=== PATIENT | female | born 1995 | race Caucasian/White ===

== ENCOUNTER 2018-06-11 21:03 | Emergency (ER) | payer BC, OTHER ==
--- NOTE | 2018-06-11 22:27 | ER ---
Nurse's Notes [facility] Name: Ketty Cohen Age: 22 yrs Sex: Female : 1995 Arrival Date: 06/11/2018 Time: 21:09 Bed 30 Private MD: Diagnosis: Contusion of unspecified part of head;Concussion without loss of consciousness Presentation: 06/11 21:10 Presenting complaint: Patient states: "A glass jar fell on my head at work and ever aj1 since I have been completely out of it" States that this occurred approximately 2 hours ago. Denies vomiting, LOC. Reports fatigue, dizziness, trouble focusing, and blurred vision. Transition of care: patient was not received from another setting of care. Mechanism of Injury: resulted from a direct blow, glass jar that fell on her head. Onset of symptoms was June 11, 2018 at 19:15. Risk Assessment: Do you want to hurt yourself or someone else? Patient reports no desire to harm self or others. Initial Sepsis Screen: Does the patient meet any 2 criteria? No. Patient's initial sepsis screen is negative. Does the patient have a suspected source of infection? No. Patient's initial sepsis screen is negative. Care prior to arrival: None. 21:10 Method Of Arrival: Ambulatory aj1 21:10 Acuity: EVELIO 4 aj1 Triage Assessment: 21:14 General: Appears in no apparent distress. comfortable, Behavior is calm, cooperative, aj1 appropriate for age. Pain: Complains of pain in forehead Pain does not radiate. Pain currently is 3 out of 10 on a pain scale. Quality of pain is described as sharp, Pain began 2 hours ago. Is intermittent. Neuro: Level of Consciousness is awake, alert, obeys commands, Oriented to person, place, time, situation, Moves all extremities. Full function Gait is steady, Speech is normal, Facial symmetry appears normal, Reports blurred vision dizziness, headache. Cardiovascular: Patient's skin is warm and dry. Respiratory: Airway is patent Respiratory effort is even, unlabored, Respiratory pattern is regular, symmetrical. 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 - Social history:: Smoking status: Patient/guardian denies using tobacco. - Ebola Screening: : Patient denies travel to an Ebola-affected area in the 21 days before illness onset. Screenin:57 Abuse screen: Denies threats or abuse. Nutritional screening: No deficits noted. mb3 Tuberculosis screening: No symptoms or risk factors identified. Fall Risk None identified. Assessment: 23:55 General: Appears in no apparent distress. comfortable, Behavior is calm, cooperative, mb3 appropriate for age. Pain: Complains of pain in right parietal area. 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 Full function Reports headache. Cardiovascular: No deficits noted. Respiratory: No deficits noted. GI: No deficits noted. No signs and/or symptoms were reported involving the gastrointestinal system. : No deficits noted. No signs and/or symptoms were reported regarding the genitourinary system. Vital Signs: 21:14 BP 116 / 86; Pulse 84; Resp 18; Temp 98.7; Pulse Ox 95% on R/A; Weight 58.06 kg (R); aj1 Height 5 ft. 4 in. (162.56 cm) (R); Pain 3/10; 23:21 BP 118 / 86; Pulse 81; Resp 16; Pulse Ox 97% on R/A; rv 23:57 BP 109 / 80; Pulse 69; Resp 16; Pulse Ox 99% on R/A; mb3 21:14 Body Mass Index 21.97 (58.06 kg, 162.56 cm) aj1 Arabella Coma Score: 21:10 Eye Response: spontaneous(4). Verbal Response: oriented(5). Motor Response: obeys aj1 commands(6). Total: 15. 22:19 Eye Response: spontaneous(4). Verbal Response: oriented(5). Motor Response: obeys cp commands(6). Total: 15. ED Course: 21:09 Patient arrived in ED. es 21:13 Triage completed. aj1 21:14 Arm band placed on Patient placed in waiting room, Patient notified of wait time. aj1 22:02 Page, Mickey, PA is PHCP. cp 22:02 Falcon, Vick, MD is Attending Physician. cp 22:38 Kvng Crawley, RN is Primary Nurse. mb3 23:57 No provider procedures requiring assistance completed. Patient did not have IV access mb3 during this emergency room visit. 23:59 Patient has correct armband on for positive identification. mb3 Administered Medications: No medications were administered Outcome: 22:26 Discharge ordered by MD. cp 23:58 Discharged to home ambulatory. mb3 23:58 Condition: stable 23:58 Discharge instructions given to patient, Instructed on discharge instructions, follow up and referral plans. Demonstrated understanding of instructions, follow-up care. 06/12 00:00 Patient left the ED. mb3 Signatures: Rosamaria Dsouza RN RN aj1 Marbella Edmond Corey, PA PA cp Kvng Cralwey, RN RN mb3 Devan Ponce RN RN rv Corrections: (The following items were deleted from the chart) 06/11 21:16 21:14 Pain: Complains of pain in forehead Pain does not radiate. Pain currently is 4 aj1 out of 10 on a pain scale. Quality of pain is described as sharp, Pain began 2 hours ago. Is intermittent, aj1
--- NOTE | 2018-06-11 22:27 | EDPHYS ---
Physician Documentation [facility] Name: Ketty Cohen Age: 22 yrs Sex: Female : 1995 Arrival Date: 06/11/2018 Time: 21:09 Bed 30 Private MD: ED Physician Vick Falcon HPI: 06/11 22:19 This 22 yrs old Male presents to ER via Ambulatory with complaints of Head cp Injury-Adult. 22:19 The patient or guardian reports injury, tenderness. The complaints affect the top of cp head. Context of injury: The problem was sustained at work, resulted from a direct blow, large bottle of honey mustard. Onset: The symptoms/episode began/occurred today, at 19:30. Associated signs and symptoms: Loss of consciousness: This patient did not experience any loss of consciousness. Pertinent positives: headache, Pertinent negatives: neck pain, vomiting. 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 - Social history:: Smoking status: Patient/guardian denies using tobacco. - Ebola Screening: : Patient denies travel to an Ebola-affected area in the 21 days before illness onset. ROS: 22:21 Constitutional: Negative for body aches, chills, fever, poor PO intake. cp 22:21 Eyes: Positive for blurry vision, Negative for photophobia, redness, vision loss. 22:21 ENT: Negative for drainage from ear(s), ear pain, sore throat, difficulty swallowing, difficulty handling secretions. 22:21 Cardiovascular: Negative for chest pain, palpitations. 22:21 Respiratory: Negative for cough, shortness of breath, wheezing. 22:21 Abdomen/GI: Negative for abdominal pain, nausea, vomiting. 22:21 Back: Negative for pain at rest, pain with movement, radiated pain. 22:21 : Negative for urinary symptoms. 22:21 Skin: Negative for cellulitis, rash. 22:21 Neuro: Positive for dizziness, headache, Negative for altered mental status, weakness. 22:21 All other systems are negative. Exam: 22:23 Head/Face: Normocephalic, atraumatic. cp 22:23 Constitutional: The patient appears in no acute distress, alert, awake, non-diaphoretic, non-toxic, well developed, well nourished. 22:23 Eyes: Periorbital structures: appear normal, Pupils: equal, round, and reactive to light and accomodation, Extraocular movements: intact throughout, Conjunctiva: normal, no exudate, no injection, Sclera: no appreciated abnormality, Lids and lashes: appear normal, bilaterally. 22:23 ENT: External ear(s): are unremarkable, Ear canal(s): are normal, clear, TM's: bulging, is not appreciated, bilaterally, dullness, bilaterally, erythema, is not appreciated, bilaterally, Nose: is normal, Mouth: is normal, Posterior pharynx: is normal, airway is patent, no erythema, no exudate. 22:23 Neck: C-spine: vertebral tenderness, is not appreciated, crepitus, is not appreciated, ROM/movement: is normal, is supple, without pain, no range of motions limitations, no nuchal rigidity. 22:23 Chest/axilla: Inspection: normal, Palpation: is normal, no crepitus, no tenderness. 22:23 Cardiovascular: Rate: normal, Rhythm: regular. 22:23 Respiratory: the patient does not display signs of respiratory distress, Respirations: normal, no use of accessory muscles, no retractions, no splinting, no tachypnea, labored breathing, is not present, Breath sounds: are clear throughout, no decreased breath sounds, no stridor, no wheezing. 22:23 Abdomen/GI: Exam negative for discomfort, distension, guarding, Inspection: abdomen appears normal. 22:23 Back: pain, is absent, ROM is normal. 22:23 Skin: cellulitis, is not appreciated, no rash present. 22:23 Neuro: Orientation: to person, place \T\ time. Mentation: lucid, able to follow commands, Cerebellar function: Romberg testing is negative, Motor: moves all fours, strength is normal, Sensation: is normal, Gait: is steady, at a normal pace, without difficulty. Vital Signs: 21:14 BP 116 / 86; Pulse 84; Resp 18; Temp 98.7; Pulse Ox 95% on R/A; Weight 58.06 kg (R); aj1 Height 5 ft. 4 in. (162.56 cm) (R); Pain 3/10; 23:21 BP 118 / 86; Pulse 81; Resp 16; Pulse Ox 97% on R/A; rv 23:57 BP 109 / 80; Pulse 69; Resp 16; Pulse Ox 99% on R/A; mb3 21:14 Body Mass Index 21.97 (58.06 kg, 162.56 cm) aj1 Arabella Coma Score: 21:10 Eye Response: spontaneous(4). Verbal Response: oriented(5). Motor Response: obeys aj1 commands(6). Total: 15. 22:19 Eye Response: spontaneous(4). Verbal Response: oriented(5). Motor Response: obeys cp commands(6). Total: 15. MDM: 22:02 Patient medically screened. cp 22:25 Data reviewed: vital signs, nurses notes, and as a result, I will discharge patient. cp Special discussion: Based on the patient's history, exam and DX evaluation, there is no indication for emergent intervention or inpatient TX. It is understood by the patient/guardian that if the SXs persist or worsen they need to return immediately for re-evaluation. Administered Medications: No medications were administered Disposition: 06/12 00:30 Chart complete. cp 01:11 Co-signature as Attending Physician, Vick Falcon MD. rn Disposition: 06/11/18 22:26 Discharged to Home. Impression: Contusion of unspecified part of head, Concussion without loss of consciousness. - Condition is Stable. - Discharge Instructions: Concussion, Adult, Head Injury, Adult. - Work release form, Medication Reconciliation Form, Thank You Letter, Antibiotic Education, Prescription Opioid Use form. - Follow up: Private Physician; When: 2 - 3 days; Reason: Recheck today's complaints. - Problem is new. - Symptoms are unchanged. Signatures: Rosamaria Dsouza RN RN aj1 Vick Falcon MD MD rn Page, Corey, PA PA cp Kvng Crawley RN RN mb3 Corrections: (The following items were deleted from the chart) 06/11 22:27 22:26 06/11/2018 22:26 Discharged to Home. Impression: Contusion of unspecified part of cp head. Condition is Stable. Forms are Medication Reconciliation Form, Thank You Letter, Antibiotic Education, Prescription Opioid Use. Follow up: Private Physician; When: 2 - 3 days; Reason: Recheck today's complaints. Problem is new. Symptoms are unchanged. cp 06/12 00:00 06/11 22:27 06/11/2018 22:26 Discharged to Home. Impression: Contusion of unspecified mb3 part of head; Concussion without loss of consciousness. Condition is Stable. Discharge Instructions: Concussion, Adult, Head Injury, Adult. Forms are Medication Reconciliation Form, Thank You Letter, Antibiotic Education, Prescription Opioid Use. Follow up: Private Physician; When: 2 - 3 days; Reason: Recheck today's complaints. Problem is new. Symptoms are unchanged. cp
== END 2018-06-12 | disposition home or self-care (01) ==
LOC: ER 21:03 → EDSEX 21:03 → ER 06-12
DX: S00.93XA Contusion of unspecified part of head, initial encounter (principal); S06.0X0A Concussion without loss of consciousness, initial encounter; W20.8XXA Other cause of strike by thrown, projected or falling object, initial encounter; Y92.69 Other specified industrial and construction area as the place of occurrence of the external cause
CPT/HCPCS: 99281

== ENCOUNTER 2018-09-16 11:47 | Emergency (ER) | payer BC, OTHER ==
[2018-09-16] MEDS ORDERED: ONDANSETRON 4 MG/2 ML VIAL ONE (12:20)
[2018-09-16] MEDS ORDERED: MORPHINE 4 MG/ML SYR ONE (12:20)
[2018-09-16 12:44] LABS: Absolute Lymphocytes (CBC) 1.5 K/uL (0.7-4.9); Absolute Monocytes 0.5 K/uL (0.1-1.3); Basophils % 0.2 % (0-1.3); Eosinophils % 1.4 % (0-4.4); Lymphocytes % 13.4 % (15.3-44.8); MCH 30.3 pg (27.0-35.0); MCV 85.6 fL (80-100); MPV 8.1 fL (7.6-11.3); Monocytes % 4.1 % (3.3-12.3); RBC Red Blood Cell Count 4.56 M/uL (3.86-4.86)
[2018-09-16 12:49] LABS: Urine Blood NEGATIVE (NEG); Urine Glucose NEGATIVE (NEG); Urine Protein NEGATIVE (NEG)
[2018-09-16 12:57] LABS: Urine Bacteria LOADED /HPF (<20); Urine Culture Reflex Order NOT NEEDED
[2018-09-16 13:16] LABS: BUN Blood Urea Nitrogen 7 mg/dL (7-18); Bicarbonate 25 mmol/L (21-32); Glucose Level 78 mg/dL (74-106); HCG, Quantitative 40556 mIU/mL (1-3); Potassium 3.9 mmol/L (3.5-5.1); Sodium Level 138 mmol/L (136-145)
--- NOTE | 2018-09-16 13:31 | RAD REPORT ---
EXAM DESCRIPTION: US - Transvaginal OB - 09/16/2018 1:19 pm CLINICAL HISTORY: with abdominal pain COMPARISON: None. FINDINGS: The uterus is retroverted and measures 8 x 7 x 7 centimeters. A gestational sac is presen t within the endometrium. Within this is a yolk sac and pole with a crown-rump length 2.4 centi meters. Cardiac activity was not visualized The ovaries are normal in size and echotexture. No significant free fluid is seen. IMPRESSION: demise. Estimated gestational age 9 weeks 1 day
--- NOTE | 2018-09-16 14:50 | EDPHYS ---
Physician Documentation [facility] Name: Ketty Cohen Age: 23 yrs Sex: Female : 1995 Arrival Date: 09/16/2018 Time: 11:49 Bed 19 Private MD: ED Physician Linus Ken HPI: 09/16 12:05 This 23 yrs old Female presents to ER via Ambulatory with complaints of Back kdr Pain. 12:05 The patient presents with pain that is acute, with no known mechanism of injury, and kdr decreased range of motion, and tenderness. The symptoms are located in the low back, Left lower back/para-sacral area . Onset: The symptoms/episode began/occurred gradually, 4 day(s) ago. The pain does not radiate. Associated signs and symptoms: The patient has no apparent associated signs or symptoms. The problem was sustained from unknown cause. Modifying factors: The patient symptoms are alleviated by remaining still, the patient symptoms are aggravated by any movement, supine position. Severity of symptoms: At their worst the symptoms were mild, moderate, just prior to arrival, in the emergency department the symptoms are unchanged. The patient has not experienced similar symptoms in the past. The patient has not recently seen a physician. No care as yet. positive home test. . 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 - Social history:: Smoking status: Patient/guardian denies using tobacco. - Ebola Screening: : Patient negative for fever greater than or equal to 101.5 degrees Fahrenheit, and additional compatible Ebola Virus Disease symptoms Patient denies exposure to infectious person Patient denies travel to an Ebola-affected area in the 21 days before illness onset No symptoms or risks identified at this time. ROS: 12:05 Constitutional: Negative for fever, chills, and weight loss, Eyes: Negative for injury, kdr pain, redness, and discharge, ENT: Negative for injury, pain, and discharge, Neck: Negative for injury, pain, and swelling, Cardiovascular: Negative for chest pain, palpitations, and edema, Respiratory: Negative for shortness of breath, cough, wheezing, and pleuritic chest pain, Abdomen/GI: Negative for abdominal pain, nausea, vomiting, diarrhea, and constipation, : Negative for injury, bleeding, discharge, and swelling, MS/Extremity: Negative for injury and deformity, Skin: Negative for injury, rash, and discoloration, Neuro: Negative for headache, weakness, numbness, tingling, and seizure activity. Psych: Negative for depression, anxiety, suicide ideation, homicidal ideation, and hallucinations, Allergy/Immunology: Negative for hives, rash, and allergies, Endocrine: Negative for neck swelling, polydipsia, polyuria, polyphagia, and marked weight changes, Hematologic/Lymphatic: Negative for swollen nodes, abnormal bleeding, and unusual bruising. 12:05 Back: Positive for pain at rest, pain with movement, of the left low back. Exam: 12:09 Constitutional: This is a well developed, well nourished patient who is awake, alert, kdr and in no acute distress. Head/Face: Normocephalic, atraumatic. Eyes: Pupils equal round and reactive to light, extra-ocular motions intact. Lids and lashes normal. Conjunctiva and sclera are non-icteric and not injected. Cornea within normal limits. Periorbital areas with no swelling, redness, or edema. Neck: Trachea midline, no thyromegaly or masses palpated, and no cervical lymphadenopathy. Supple, full range of motion without nuchal rigidity, or vertebral point tenderness. No Meningismus. Chest/axilla: Normal chest wall appearance and motion. Nontender with no deformity. No lesions are appreciated. Cardiovascular: Regular rate and rhythm with a normal S1 and S2. No gallops, murmurs, or rubs. Normal PMI, no JVD. No pulse deficits. Respiratory: Lungs have equal breath sounds bilaterally, clear to auscultation and percussion. No rales, rhonchi or wheezes noted. No increased work of breathing, no retractions or nasal flaring. Skin: Warm, dry with normal turgor. Normal color with no rashes, no lesions, and no evidence of cellulitis. MS/ Extremity: Pulses equal, no cyanosis. Neurovascular intact. Full, normal range of motion. Neuro: Awake and alert, GCS 15, oriented to person, place, time, and situation. Cranial nerves II-XII grossly intact. Motor strength 5/5 in all extremities. Sensory grossly intact. Cerebellar exam normal. Normal gait. Psych: Awake, alert, with orientation to person, place and time. Behavior, mood, and affect are within normal limits. 12:09 Abdomen/GI: Inspection: abdomen appears normal, Bowel sounds: normal, Palpation: soft, mild abdominal tenderness, in the right lower quadrant, mass, is not appreciated, rebound tenderness, is not appreciated, voluntary guarding, is not appreciated, involuntary guarding, is not appreciated. Vital Signs: 12:03 BP 109 / 70; Pulse 81; Resp 16; Pulse Ox 100% on R/A; Weight 57.15 kg; Height 5 ft. 4 iw in. (162.56 cm); Pain 7/10; 12:30 BP 104 / 74; Pulse 85; Resp 16; Pulse Ox 99% on R/A; Pain 7/10; em 13:46 BP 102 / 62; Pulse 75; Resp 18; Pulse Ox 99% on R/A; Pain 5/10; em 14:38 BP 102 / 65; Pulse 70; Resp 16; Temp 98.2(O); Pulse Ox 99% on R/A; Pain 7/10; em 12:03 Body Mass Index 21.63 (57.15 kg, 162.56 cm) iw MDM: 12:09 Data reviewed: vital signs, nurses notes. Counseling: I had a detailed discussion with kdr the patient and/or guardian regarding: the historical points, exam findings, and any diagnostic results supporting the discharge/admit diagnosis, lab results, radiology results. 14:49 Patient medically screened. kdr 15:06 ED course: The patient was noted to have a blood type card indicating O+. kdr 09/16 12:04 Order name: CBC with Diff; Complete Time: 14:20 kdr 09/16 12:04 Order name: Chem 7; Complete Time: 14:20 kdr 09/16 12:04 Order name: Bhcg; Complete Time: 14:20 kdr 09/16 12:04 Order name: Quantitative Hcg kdr 09/16 12:35 Order name: Urine Microscopic Only em 09/16 12:35 Order name: Urine Culture em 09/16 12:35 Order name: Urine Microscopic Only; Complete Time: 14:20 EDMS 09/16 12:38 Order name: Urine Dipstick--Ancillary (enter results); Complete Time: 14:20 09/16 12:38 Order name: Urine --Ancillary (enter results); Complete Time: 14:20 09/16 13:18 Order name: Transvaginal OB; Complete Time: 14:20 [facility] 09/16 15:06 Order name: Rh Type 09/16 12:04 Order name: Urine Dipstick-Ancillary (obtain specimen); Complete Time: 12:35 kdr Administered Medications: 12:25 Drug: morphine 2 mg Route: IVP; Site: right antecubital; iw 13:42 Follow up: Response: No adverse reaction; Pain is decreased em 12:25 Drug: Zofran 4 mg Route: IVP; Site: right antecubital; iw 13:42 Follow up: Response: No adverse reaction em 14:58 Drug: Macrobid 100 mg Route: PO; em 15:10 Follow up: Response: Medication administered at discharge. em 14:58 Drug: morphine 2 mg Route: IVP; Site: right antecubital; em 15:10 Follow up: Response: No adverse reaction em 14:58 Drug: Tylenol #3 (300 mg-30 mg) 2 tabs Route: PO; em 15:10 Follow up: Response: Medication administered at discharge. em Disposition: 09/16/18 14:49 Discharged to Home. Impression: Demise: 9 wk 1 d, UTI. - Condition is Stable. - Discharge Instructions: Incomplete Miscarriage, Urinary Tract Infection, Adult, [id number]. - Prescriptions for Tylenol- Codeine #3 300-30 mg Oral Tablet - take 2 tablets by ORAL route every 6 hours As needed; 20 tablet. Zofran 4 mg Oral Tablet - take 1 tablet by ORAL route every 12 hours As needed; 12 tablet. Macrobid 100 mg Oral Capsule - take 1 capsule by ORAL route every 12 hours for 10 days; 20 capsule. - Medication Reconciliation Form, Thank You Letter, Antibiotic Education, Prescription Opioid Use, Work release form form. - Follow up: Darien Roque MD; When: 2 - 3 days; Reason: Further diagnostic work-up, Recheck today's complaints, Continuance of care, Re-evaluation by your physician. - Problem is new. - Symptoms have improved. Signatures: Dispatcher [employer] EDMS Linus Ken MD MD kdr Joe, Ulices, REALTIME REPORTER REALTIME REPORTER em Adela Hanson, RN RN iw Corrections: (The following items were deleted from the chart) 13:18 12:05 Pelvis Complete+[id number].[email or web address] ordered. [facility] 15:10 14:49 09/16/2018 14:49 Discharged to Home. Impression: Demise: 9 wk 1 d, UTI. em Condition is Stable. Forms are Medication Reconciliation Form, Thank You Letter, Antibiotic Education, Prescription Opioid Use. Follow up: Darien Roque; When: 2 - 3 days; Reason: Further diagnostic work-up, Recheck today's complaints, Continuance of care, Re-evaluation by your physician. Problem is new. Symptoms have improved. kdr
--- NOTE | 2018-09-16 14:50 | ER ---
Nurse's Notes [facility] Name: Ketty Cohen Age: 23 yrs Sex: Female : 1995 Arrival Date: 09/16/2018 Time: 11:49 Bed 19 Private MD: Diagnosis: Demise: 9 wk 1 d, UTI Presentation: 09/16 11:58 Presenting complaint: Patient states: has had pain to left lower back pain X 4days, iw aggravated by mvmt, does not remember injuring herself, pt is also 8 weeks , states she has had intermittent cramping throughout but no vaginal bleeding. 12:00 Transition of care: patient was not received from another setting of care. Onset of iw symptoms was September 12, 2018. Risk Assessment: Do you want to hurt yourself or someone else? Patient reports no desire to harm self or others. Initial Sepsis Screen: Does the patient meet any 2 criteria? No. Patient's initial sepsis screen is negative. Does the patient have a suspected source of infection? No. Patient's initial sepsis screen is negative. Care prior to arrival: None. 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 - Social history:: Smoking status: Patient/guardian denies using tobacco. - Ebola Screening: : Patient negative for fever greater than or equal to 101.5 degrees Fahrenheit, and additional compatible Ebola Virus Disease symptoms Patient denies exposure to infectious person Patient denies travel to an Ebola-affected area in the 21 days before illness onset No symptoms or risks identified at this time. Screenin:54 Abuse screen: Denies threats or abuse. Nutritional screening: No deficits noted. em Tuberculosis screening: No symptoms or risk factors identified. Fall Risk None identified. Assessment: 12:20 General: Appears in no apparent distress. uncomfortable, Behavior is calm, cooperative. em Pain: Complains of pain in left lower back Pain currently is 5 out of 10 on a pain scale. Neuro: Level of Consciousness is awake, alert, obeys commands, Oriented to person, place, time, situation. Cardiovascular: Capillary refill < 3 seconds Patient's skin is warm and dry. Respiratory: Airway is patent Respiratory effort is even, unlabored, Respiratory pattern is regular, symmetrical. GI: Abdomen is flat, Abd is soft and non tender X 4 quads. Patient currently denies diarrhea, nausea, vomiting. : Denies burning with urination. EENT: No signs and/or symptoms were reported regarding the EENT system. Derm: Skin is intact, Skin is pink, warm \T\ dry. Musculoskeletal: Range of motion: intact in all extremities. 12:30 General: The previous assessment is accurate. Call light remains within reach. . ss 13:25 Reassessment: Patient appears in no apparent distress at this time. Patient and/or em family updated on plan of care and expected duration. Pain level reassessed. Patient is alert, oriented x 3, equal unlabored respirations, skin warm/dry/pink. 14:42 Reassessment: Patient appears in no apparent distress at this time. Patient and/or em family updated on plan of care and expected duration. Pain level reassessed. Patient is alert, oriented x 3, equal unlabored respirations, skin warm/dry/pink. Dr. Ken at bedside. Vital Signs: 12:03 BP 109 / 70; Pulse 81; Resp 16; Pulse Ox 100% on R/A; Weight 57.15 kg; Height 5 ft. 4 iw in. (162.56 cm); Pain 7/10; 12:30 BP 104 / 74; Pulse 85; Resp 16; Pulse Ox 99% on R/A; Pain 7/10; em 13:46 BP 102 / 62; Pulse 75; Resp 18; Pulse Ox 99% on R/A; Pain 5/10; em 14:38 BP 102 / 65; Pulse 70; Resp 16; Temp 98.2(O); Pulse Ox 99% on R/A; Pain 7/10; em 12:03 Body Mass Index 21.63 (57.15 kg, 162.56 cm) iw ED Course: 11:49 Patient arrived in ED. tw3 11:52 Linus Ken MD is Attending Physician. kdr 11:53 Ulices Diaz LVN is Primary Nurse. em 12:02 Triage completed. iw 12:04 Arm band placed on. iw 12:20 Patient has correct armband on for positive identification. Bed in low position. Call em light in reach. Adult w/ patient. 12:20 Initial lab(s) drawn, by me, sent to lab. Urine collected: clean catch specimen, clear. em Inserted saline lock: 20 gauge in right antecubital area, using aseptic technique. Blood collected. 13:06 Patient taken to ultrasound. via wheelchair. lc3 13:18 Transvaginal OB In Process Unspecified. EDMS 14:48 Darien Roque MD is Referral Physician. kdr 15:08 No provider procedures requiring assistance completed. IV discontinued, intact, em bleeding controlled, No redness/swelling at site. Pressure dressing applied. Administered Medications: 12:25 Drug: morphine 2 mg Route: IVP; Site: right antecubital; iw 13:42 Follow up: Response: No adverse reaction; Pain is decreased em 12:25 Drug: Zofran 4 mg Route: IVP; Site: right antecubital; iw 13:42 Follow up: Response: No adverse reaction em 14:58 Drug: Macrobid 100 mg Route: PO; em 15:10 Follow up: Response: Medication administered at discharge. em 14:58 Drug: morphine 2 mg Route: IVP; Site: right antecubital; em 15:10 Follow up: Response: No adverse reaction em 14:58 Drug: Tylenol #3 (300 mg-30 mg) 2 tabs Route: PO; em 15:10 Follow up: Response: Medication administered at discharge. em Outcome: 14:49 Discharge ordered by . kdr 15:08 Discharged to home ambulatory, with family. em 15:08 Condition: stable 15:08 Discharge instructions given to patient, family, Instructed on discharge instructions, follow up and referral plans. no drinking with medication, no driving heavy equipment, medication usage, Demonstrated understanding of instructions, follow-up care, medications, Prescriptions given X 3. 15:10 Patient left the ED. em Addendum: 09/19/2018 08:03 Addendum: Culture Results: Positive urine culture. No further action required. Bacteria i w sensitive to prescribed antibiotic. Signatures: Dispatcher [employer] EDPA Linus Ken MD MD kdr Ulices Diaz, YOUTH DEVELOPMENT SPECIALIST YOUTH DEVELOPMENT SPECIALIST em Valentin, AdelaANNABEL junior RN, Shelby, RN RN ss Cunningham, Laulita lc3 Wade, Padmini tw3 Corrections: (The following items were deleted from the chart) 09/16 12:02 11:58 Presenting complaint: Patient states: has had pain to left lower back pain X iw 4days, 12:02 Acuity: EVELIO 4 iw iw
[2018-09-16] MEDS ORDERED: CODEINE 30MG/APAP 300MG TAB ONE (14:55)
[2018-09-16] MEDS ORDERED: NITROFURAN MACRO 100 MG CAP PO ONE (14:56)
== END 2018-09-16 15:10 | disposition home or self-care (01) ==
LOC: ER 11:47
DX: O02.1 Missed abortion (principal); N39.0 Urinary tract infection, site not specified
CPT/HCPCS: 36415; 76817; 80048; 81003; 81015; 81025; 84702; 85025; 86901; 87077; 87086; 87088; 87186; 96374; 96375; 99284; J2405